=== PATIENT | female | born 1965 | race African-American/Black ===

== ENCOUNTER 2025-05-18 11:46 | Inpatient (IN) | payer MEDICAID ==
[~2025-05-18] VITALS: Ht 165.1 cm; Wt 89.4 kg
[~2025-05-18 11:46] MED LIST: ALBU18HF2 IH; AMI2 PO; APIX5TAB PO; DIGO-34 PO; FURO40TA5 MT; METO100T16 PO; MOME13HF12 INH; POTA-204 PO
[2025-05-18 11:55] VITALS: O2SAT 100
[2025-05-18 13:14] LABS: BASOPHILS % 0.9 % (0.0-2.0); EOSINOPHILS % 0.1 % (0.0-5.0); HEMATOCRIT. 41.0 % (36.0-48.0); HEMOGLOBIN. 13.6 g/dL (12.0-16.0); LYMPHOCYTES % 30.9 % (20.0-50.0); MEAN PLATELET VOLUME 11.0 fl (7.4-10.4); MONOCYTES % 8.5 % (2.0-8.0); NEUTROPHILS % 59.6 % (40.0-76.0); PLATELET 159 x1000/uL (130-400); RED BLOOD CELL COUNT 4.56 mill/uL (4.2-5.4); RED CELL DISTRIBUTION WIDTH 14.7 % (11.6-14.6)
[2025-05-18 13:26] LABS: CREATININE 1.4 mg/dL (0.6-1.0)
[2025-05-18 13:27] LABS: TROPONIN I HIGH SENSITIVITY 6 ng/L (3.0-34); UREA NITROGEN BLOOD 13 mg/dL (9-23)
[2025-05-18 13:28] LABS: ASPARTATE AMINOTRANSFERASE 16 IU/L (<34)
[2025-05-18 13:29] LABS: BILIRUBIN DIRECT 0.2 mg/dL (<=3.0); BILIRUBIN TOTAL 0.8 mg/dL (0.1-1.0); PROTEIN TOTAL 7.2 g/dL (6.0-8.3)
[2025-05-18] MEDS: ENOXAPARIN 80MG/0.8ML SYR SUBCUT SCH (15:30)
[2025-05-18 15:36] LABS: INR 1.1
[2025-05-18] MEDS: DOPAMINE 400MG/250ML PREMIX 250 ML IV PRN (15:53)
[2025-05-18 16:20] VITALS: BP 113/74; PULSE 50; RESP 18; TEMP 36.4; O2SAT 99
[2025-05-18 16:25] VITALS: BP 113/74; PULSE 50; RESP 16; TEMP 36.418
[2025-05-18 16:39] LABS: TROPONIN I HIGH SENSITIVITY 6 ng/L (3.0-34)
[2025-05-18] MEDS ORDERED: INSU100I28 SQ (16:48)
[2025-05-18] MEDS ORDERED: ZOLPIDEM TARTRATE 5MG TABLET PO PRN (17:15)
[2025-05-18] MEDS ORDERED: IPRATROPIUM/ALBUTEROL 0.5-3(2.5)MG/3ML NEB HHN PRN (17:15)
[2025-05-18] MEDS ORDERED: DOCUSATE SODIUM 100MG CAPSULE PO PRN (17:15)
[2025-05-18] MEDS ORDERED: DEXTROSE 50% WATER 50ML SYRINGE IV PRN (17:15)
[2025-05-18] MEDS ORDERED: MAGNESIUM/ALUMINUM HYDROXIDE/SIMETHICONE 30ML UDC PO PRN (17:15)
[2025-05-18] MEDS ORDERED: ONDANSETRON HCL 4MG/2ML INJ IV PRN (17:15)
[2025-05-18] MEDS ORDERED: DIPHENHYDRAMINE 50MG/ML VIAL IV PRN (17:15)
[2025-05-18] MEDS ORDERED: ACETAMINOPHEN 325MG TABLET PO PRN (17:15)
[2025-05-18] MEDS: ACETAMINOPHEN 325MG TABLET PO PRN (17:36)
[2025-05-18] MEDS: INSULIN LISPRO 100 UNITS/ML SUBCUT SCH (17:38)
[2025-05-18] MEDS: BLOOD SUGAR DIAGNOSTIC STRIP TEST SCH (17:38)
[2025-05-18] MEDS ORDERED: BUDESONIDE 0.5MG/2ML NEB HHN SCH (18:00)
[2025-05-18 20:00] VITALS: BP 111/52; PULSE 49; RESP 20; TEMP 36.3; O2SAT 99
[2025-05-18] MEDS: SODIUM CHLORIDE 0.9% 3ML FLUSH IVF SCH (22:00)
[2025-05-18] MEDS: INSULIN GLARGINE 100 UNITS/ML SUBCUT SCH (22:49)
[2025-05-18] MEDS: APIXABAN 5 MG TABLET PO SCH (22:50)
[2025-05-19] VITALS: BP 98/46; PULSE 49; RESP 20; TEMP 36.3; O2SAT 99
[2025-05-19 04:00] VITALS: BP 101/49; PULSE 53; RESP 19; TEMP 36.2; O2SAT 100
[2025-05-19] MEDS ORDERED: ENOXAPARIN 80MG/0.8ML SYR SUBCUT SCH (06:00)
[2025-05-19 08:00] VITALS: BP 105/54; PULSE 56; RESP 18; TEMP 36.4; O2SAT 100
[2025-05-19] MEDS: POTASSIUM CHLORIDE 20MEQ TABLET SR PO SCH (09:08)
[2025-05-19] MEDS: FUROSEMIDE 40MG/4ML VIAL IVP SCH (09:40)
[2025-05-19 12:00] VITALS: BP 102/52; PULSE 62; RESP 20; TEMP 36.5; O2SAT 98
[2025-05-19 16:00] VITALS: BP 130/81; PULSE 80; RESP 20; TEMP 36.7; O2SAT 100
[2025-05-19 20:00] VITALS: BP 136/73; PULSE 51; RESP 17; TEMP 36.5; O2SAT 99
[2025-05-20] VITALS: BP 125/64; PULSE 72; RESP 18; TEMP 36.4; O2SAT 99
[2025-05-20 04:00] VITALS: BP 110/66; PULSE 77; RESP 18; TEMP 36.6; O2SAT 100
[2025-05-20 08:00] VITALS: BP 118/61; PULSE 69; RESP 18; TEMP 36.7; O2SAT 99
[2025-05-20 08:55] LABS: CREATININE 1.2 mg/dL (0.6-1.0)
[2025-05-20 08:56] LABS: UREA NITROGEN BLOOD 14.0 mg/dL (9-23)
[2025-05-20 12:00] VITALS: BP 124/71; PULSE 63; RESP 20; TEMP 36.1; O2SAT 98
[2025-05-20] MEDS: DIGOXIN 125MCG TABLET PO NR (13:41)
[2025-05-20 16:00] VITALS: BP 110/67; PULSE 62; RESP 18; TEMP 36.5; O2SAT 100
[2025-05-20 18:07] VITALS: BP 110/67; PULSE 62; RESP 18; TEMP 97.7
== END 2025-05-20 18:50 | disposition home or self-care (01) | DRG 194 ==
LOC: ER 11:46 → 8WST 14:24 → EDBEDREQ 14:27 → EDBEDREQTM 14:27 → ENRESERV 15:43
PROVIDERS: ADMIT Internal Medicine; ATTEND Internal Medicine
DX: I11.0 Hypertensive heart disease with heart failure (principal); E11.9 Type 2 diabetes mellitus without complications; I50.23 Acute on chronic systolic (congestive) heart failure; I48.20 Chronic atrial fibrillation, unspecified; J44.9 Chronic obstructive pulmonary disease, unspecified; E78.00 Pure hypercholesterolemia, unspecified; Z79.899 Other long term (current) drug therapy; Z88.5 Allergy status to narcotic agent; E87.8 Other disorders of electrolyte and fluid balance, not elsewhere classified
CPT/HCPCS: 36415; 71045; 80048; 80076; 82962; 83735; 83880; 84484; 85025; 85379; 93005; 99285; J1815; J1938